=== PATIENT | female | born 1955 | race Caucasian/White ===

== ENCOUNTER 2017-11-21 05:59 | Day surgery (SDC) | payer OTHER, SELFPAY ==
[2017-11-21 06:51] VITALS: BP 155/70; PULSE 56; RESP 18; TEMP 36.3; O2SAT 100; BMI 26.6
--- NOTE | 2017-11-21 07:32 | PCM.OPRPT ---
Problem List (1) Personal history of colonic polyps Status: Acute Report of Operation Date of Procedure: 11/21/17 Pre-Operative Diagnosis: Z86.010 personal history of colonic polyps Post-Operative Diagnosis: Same Surgery/Procedure Performed:: 50621 colonoscopy Anesthesiologist: Piero Soliman Description of Procedure: Patient was brought into the endoscopy suite. Placed in the left lateral decubitus position. Was given graded anesthesia. The scope was inserted into the rectum and directed through the sigmoid colon, descending colon, transverse colon, ascending colon, to the cecum. Operative findings: 1. Anastomosis: Normal in appearance 2. Transverse colon: Normal appearance no mass lesions. 3. Descending colon: Normal appearance no mass lesions scattered diverticular disease. 4. Sigmoid colon: Normal appearance no mass lesions scattered diverticular disease. 5. Rectum: Normal appearance no mass lesions scope was withdrawn digital rectal exam was performed showing no masses within the anus. Patient tolerated the procedure well. Given the patient's family history she will need to have another colonoscopy in 5 years
[2017-11-21 08:00] VITALS: BP 138/70; BP 155/70; PULSE 59; RESP 17; TEMP 36.2; O2SAT 100
[2017-11-21 08:05] VITALS: BP 125/70; BP 155/70; PULSE 59; RESP 16; O2SAT 100
[2017-11-21 08:10] VITALS: BP 149/71; BP 155/70; PULSE 59; RESP 16; O2SAT 100
[2017-11-21 08:15] VITALS: BP 141/77; BP 155/70; PULSE 58; RESP 16; TEMP 36.5; O2SAT 99
[2017-11-21 08:29] VITALS: BP 155/70
== END 2017-11-21 08:40 | disposition home or self-care (01) ==
LOC: EN 05:59 → AC 06:01
PROVIDERS: Family Provider Internal Medicine; PCP Internal Medicine; Visit Provider Surgery
PROC: 0DJD8ZZ Inspection of Lower Intestinal Tract, Via Natural or Artificial Opening Endoscopic (ICD-10-PCS; CPT 45378; principal; 2017-11-21 07:25)
DX: Z86.010 Personal history of colon polyps (principal); I10 Essential (primary) hypertension; K58.9 Irritable bowel syndrome, unspecified; Z78.0 Asymptomatic menopausal state; M19.90 Unspecified osteoarthritis, unspecified site; M81.0 Age-related osteoporosis without current pathological fracture; Z90.49 Acquired absence of other specified parts of digestive tract; Z79.899 Other long term (current) drug therapy
CPT/HCPCS: 45378; J7120

== ENCOUNTER 2017-12-14 08:30 | Outpatient (RCR) | payer OTHER, SELFPAY ==
--- NOTE | 2017-10-13 12:21 | HP.PTEVAL_ITS ---
Patient's Visit Information LELAND HER is a 62 year old F referred to Physical Therapy by Nnamdi IRVING with a diagnosis of SCIATIC RADICULITIS. Date of Evaluation: 10/13/17 Physical Therapist: Kathy Gutierrez - Visit Plan Frequency: 2-3x /Week Duration: 4-6 Weeks Plan: POSTURE CORRECTION/STRENGTHENING, INSTRUCTION IN APPROPRIATE BODY MECHANICS AND ACTIVITY MODIFICATIONS. DLS STARTING WITH A NEUTRAL SPINE PROGRESSING ROM TOLERATED. TAMAR LE ROM, STRETCHING AND STRENGTHENING. HEP INSTRUCTION. 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 HELPS WITH DISHES, MOPPING AND SOME LIFING. Disability: NO. Present symptoms: RIGHT LOW BACK, RIGHT THIGH, RIGHT LEG, BOTTOM OF RIGHT FOOT. NO NUMBNESS OR TINGLING. Present since: ABOUT 3 MONTHS AGO. Pain Scale: WORST 8/10, LEAST 3/10. Currently: 3/10. Commenced as a result of: NO APPARENT REASON. Symptoms at onset: RIGHT LOW BACK. Worse: PROLONGED SITTING, WALKING, STANDING, HEAVY LIFTING, WORK. Better: A DOCTOR IN [place] USING A DEVICE, RESTING. Disturbed sleep: YES. Previous history/Previous treatment: NO LUMBAR SURGERY. CHIROPRACTIC TREATMENTS OFF AND ON FOR 4 TO 5 YEARS FOR BEING ACHY, RIGHT SHOULDER PAIN AND PATIENT DOESN'T REMEMBER HAVING LOW BACK PAIN OR RIGHT LEG SX' S BEFORE 3 MONTHS AGO. NO LORA'S. NO LOW BACK PT. Coughing/sneezing/straining: NEGATIVE. Gait: NORMAL LONG IT ISN'T TOO MUCH WALKING. RIGHT LOW BACK CAUSES LIMP WITH TOO MUCH WALKING. NO AD'S. Difficulty initiating urinatin: NO. Accidents: NO. Unexplained weight loss: NO. Imaging: LUMBAR X-RAY RECENTLY SHOWING SCIATIC N. RELATED. STATES [place] TOLD HER RIGHT HIP LOOKS GOOD. PMH: HISTORY OR RIGHT SHOULDER. OCT 25 2016 COLON RESECTION - DUE TO BENIGN PULUP. RIGHT FOOT SX WITH DR. ALVARADO WITHIN LAST 5 YEARS. HTN. OSTEOPENIA. - Objective Sitting Posture: POOR. Standing Posture: POOR. Lordosis: REDUCED. Lateral shift: NO. Relevant shift: N/A. Active Correction of posture: BETTER. Other Observations: INDEP SIT TO STAND WITHOUT UE ASSIST. Motor deficit: TAMAR LE 4/ 5 WITH MMT EXCEPT HIPS GRADED 4-/5. Sensory deficit: TAMAR LE LIGHT TOUCH SENSATION INTACT AND SYMMETRICAL. ROM deficit: TIGHT TAMAR HS'S AND GASTROC SOLEUS COMPLEX'S. Reflexes: 2/2 TAMAR LE'S. Dural Signs: POSITIVE TAMAR LE DURAL SIGNS. Lumbar mvmt loss: flex - MIN TO MOD -. ext - MOD TO LOLLY -. R SG - MOD -. L SG - MOD -. Core strength: POOR. Palpation: TENDERNESS WITH PALPATION OF THE RIGHT LUMBOSACRAL MUSCULATURE BUT NO TENDERNESS WITH PALPATION OF LOWER THORACIC OR LUMBAR SPINOUS PROCESSES. THORACIC AND LUMBAR PARASPINALS ARE VERY TIGHT. - Goals Goal 1:: DECREASE C/O LBP Goal Time Frame: 4-6 Weeks Goal 2:: IMPROVE LIFTIING, STANDING, WALKING, ADL AND WORK FUNCTION Goal Time Frame: 4-6 Weeks Goal 3:: INSTRUCT IN PROPHYLAXIS Goal Time Frame: 4-6 Weeks - Rehabilitation Potential Rehabilitation Potential: Fair - Anticipated Interventions Patient/Client Instruction: Educate patient on: Condition, Plan of Care, Risk Factors, Benefits of Fitness Program For the Purpose of:: To improve self management Therapeutic Exercise to Include: Strength training, Body mechanics, Postural training, Flexibilty training, Dynamic Lumbar Stabilization For the Purpose of:: To improve ability of physical actions for home/community/ work/leisure TENS: Yes IF ES: Yes Cryotherapy (ice pack, ice massage): Yes Thermo therapy (hot pack): Yes Ultrasound (thermal/non thermal): Yes For the Purpose of:: To decrease pain, To decrease swelling/inflammation, To increase ROM Thank you for the opportunity to evaluate your patient. For Medicare and Medicare HMO plans, please review the plan of care and approve it. It will need to be FAXED BACK to us at [phone] for Medicare purposes. Please let me know if there are questions or concerns regarding this plan of care. Physician Signature: Date:
--- NOTE | 2017-11-09 12:03 | HP.PTREVAL_ITS ---
DR.DDAVIS Michael It has been my pleasure to treat LELAND HER over the last 9 visits for SCIATIC RADICULITIS. Please see the progress note below for an update on the physical therapy plan of care! Subjective: PATIENT REPORTS HER STOMACH DIDN'T FEEL GOOD TUESDAY SO SHE CANCELLED. REPORTS SHE HAS HAD SOME LBP TODAY. PATIENT REPORTS THAT OVER ALL HER STRENGTH, PAIIN, AND WORK FUNCTION HAS IMPROVED. ALSO REPORTS HER BALANCE IS SOME BETTER BUT STILL A STRUGGLE IF SHE IS REALLY HURRING. SHE REPORTS THAT ALTHOUGH SHE FEELS LIKE THERAPY IS HELPING SHE IS STILL GETTING UP TO 3/10 PAIN AT TIMES IN HER RIGHT LOW BACK AND SHE IS IN PAIN ABOUT 50% OF THE DAY. SHE TRIES TO AVOID ACTIVITIES THAT CAUSE THE PAIN BUT SOMETIMES SHE CAN'T. 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 DECREASED PAIN WITH HEAT/ELECTRRICAL TREATMENTS. Objective/Function: PATIENT IS SHOWING AND REPORTING IMPROVEMENT IN HER STRENGTH AND FLEXABILITY. UPON EXAM, LUMBAR MVMT LOSS: FLEX - MOD, EXT - MOD, TAMAR SG - MIN TO MOD. NO INCREASED PAIN WITH LUMBAR ROM TESTING TODAY EXCEPT RETURN FROM FLEX. TAMAR LE DURAL SIGNS ARE NEGATIVE NOW BUT SHE STILL HAS TIGHT HAMSTRINGS AND GASTROC SOLEUS COMPLEX'S. TAMAR LE STRENGTH IS 5/5 WITH MMT EXCEPT HIPS 4/5 AND SHE STILL HAS POOR CORE STRENGTH BUT A LITTLE IMPROVEMENT. SHE IS INDEP WITH A HEP BUT STILL NEEDS MORE EDUCATION TO SEE IF SHE CAN SAFELY TRANSITION TO [facility] G[facility]SH[facility]. SHE STILL HAS LUMBAR TENDERNESS A PARASPINAL INCREASED MUSCLE TONE AND THIS PT BELIEVES SHE WOULD BENEFIT FROM CONTINUED PT DECREASING TO 2X'S A WEEK X 3 WEEKS. Plan Plan: CONT PT PER POC DECREASING TO 2X'S A WEEK FOR MODALITIES NEEDED AND FOCUS ON TRANSITION TO INDEP GYM MEMBERSHIP. Goals Goal 1:: DECREASE C/O LBP Goal Time Frame: 4-6 Weeks Goal Progress: Progressing Goal 2:: IMPROVE LIFTIING, STANDING, WALKING, ADL AND WORK FUNCTION Goal Time Frame: 4-6 Weeks Goal Progress: Progressing Goal 3:: INSTRUCT IN PROPHYLAXIS Goal Time Frame: 4-6 Weeks Goal Progress: Progressing Anticipated Interventions Patient/Client Instruction: Educate patient on: Condition, Plan of Care, Risk Factors, Benefits of Fitness Program For the Purpose of:: To improve self management Therapeutic Exercise to Include: Strength training, Body mechanics, Postural training, Flexibilty training, Dynamic Lumbar Stabilization For the Purpose of:: To improve ability of physical actions for home/community/ work/leisure TENS: Yes IF ES: Yes Cryotherapy (ice pack, ice massage): Yes Thermo therapy (hot pack): Yes Ultrasound (thermal/non thermal): Yes For the Purpose of:: To decrease pain, To decrease swelling/inflammation, To increase ROM Please do not hesitate to contact me at [phone] by phone or Fax: if you have questions or concerns regarding this new plan of care! Sincerely, Kathy Gutierrez
--- NOTE | 2017-12-14 12:11 | HP.PTDCSUM ---
HP - PT D/C Summary It has been my pleasure to treat LELAND HER under orders from DR.DDAVIS Michael for the diagnosis of SCIATIC RADICULITIS for a total of 14 visit(s). Discharge Date: Please see the following information for a summary of their discharge status. - Subjective Subjective: PATIENT REPORTS NOT BEING ABLE TO COME FOR AWHILE BECAUSE OF GETTING THE FLU. STATES HER BACK IS DOING PRETTY GOOD AND NOT HAVING ANY PAIN RIGHT NOW. STATES SHE IS COMFORTABLE WITH CONTINUING ON HER HOME WITH THE WRITTEN INSTRUCTIONS WE HAVE GIVEN HER. PATIENT REPORTS LBP UP TO 10/19 NOW AND STATES SHE IS USUALLY PAINFREE ABOUT 80% OR MORE OF HER DAY. - Pain LOW BACK Pain Intensity (Out of 10): 0 - Overall Improvement % Improvement: 90 - Objective Objective/Function: ALL GOALS MET. PATIENT DEOMONSTRATES AND COMMUNICATES A GOOD UNDERSTANDING OF EX INSTRUCTIONS LOG SHE USES THE DETAILED WRITTEN EX LOG GIVEN ALTHOUGH SHE IS SLOW AT PROCESSING HOW TO PROCEED AT TIMES. I REALLY THINK THIS WILL GET BETTER THE MORE SHE COMES ON HER OWN. UPON EXAM TODAY LUMBAR MVMT LOSS: FLEX - MIN, EXT - MIN TO MOD, TAMAR SG - MIN. NO C/O PAIN WITH LUMBAR ROM TESTING TODAY ALL PLANES. TAMAR LE DURAL SIGNS ARE NEGATIVE BUT SHE STILL HAS TIGHT HAMSTRINGS AND GASTROC SOLEUS COMPLEX'S. TAMAR LE STRENGTH IS 5/5 WITH MMT EXCEPT HIPS 4/5 AND SHE STILL HAS POOR CORE STRENGTH . - Goals Goal 1:: DECREASE C/O LBP Goal Progress: Goal Met Goal 2:: IMPROVE LIFTIING, STANDING, WALKING, ADL AND WORK FUNCTION Goal Progress: Goal Met Goal 3:: INSTRUCT IN PROPHYLAXIS Goal Progress: Goal Met - Plan Plan: D/C. PATIENT AGREEABLE. - D/C Information If there are questions or concerns regarding this patient's physical therapy, please feel free to call me at [phone]. Thank you for the referral of this patient. Sincerely, Kathy Gutierrez
== END 2017-12-14 17:54 | disposition home or self-care (01) ==
LOC: PT 08:30
PROVIDERS: Family Provider Internal Medicine; PCP Internal Medicine; Visit Provider Family Medicine
DX: M51.17 Intervertebral disc disorders with radiculopathy, lumbosacral region (principal)
CPT/HCPCS: 97014; 97035; 97110; 97162; 97530; G0283

== ENCOUNTER → 2019-03-12 | Outpatient (CLI) | payer OTHER, SELFPAY ==
--- NOTE | 2019-03-12 10:23 | STEWCON_ITS ---
Reason For Study: CHEST PAIN Stress Results Protocol: Bernardo Protocol WITH DEFINITY Maximum Predicted HR: 154 bpm Target HR: 131 bpm % Maximum Predicted HR: 86 % DurationHeart Rate Stage (mm:ss) (bpm) BP Comment BASELINE 75 132/821 CC DEFINITY STAGE 1 3:00 105 170/70 STAGE 2 3:00 113 160/88 STAGE 3 2:02 133 / 2CC DEFINITY RECOVERY 76 152/84 Stress Duration: 8:02 mm:ss Maximum Stress HR: 133 bpm Baseline Echocardiogram Findings Stress Echo Wall motion Data Resting WM Intermediate WM Stress WM Resting Wall Motion Wall Motion Stress No regional wall motion No regional wall motion abnormalities noted. abnormalities noted. Ejection Fraction 55 %. Ejection Fraction 70 %. Interpretation Summary Exercise stress echocardiogram. 64-year-old lady with a history of chest pain. Stress protocol: Resting EKG demonstrates normal sinus rhythm with a rate of 62 bpm normal intervals are noted resting blood pressures 132/82 mmHg. The patient exercised according to regular Bernardo protocol for total duration of 8 minutes completing 2 minutes into stage III of the Bernardo protocol. The maximum heart rate attained was 137 bpm which was 88% of maximum predicted heart rate the maximum workload was 10.1 metabolic equivalents. The patient maintained sinus rhythm throughout the recording. At rest there were no ST or T wave changes noted suggest ischemia and at peak exercise nonspecific ST-T wave changes were noted with normally the criteria for ischemia. No clinical angina was noted the test was terminated due to shortness of breath and fatigue. Occasional premature ventricular complexes were noted. The resting blood pressure was 132/82 with a peak blood pressure 182/80 mmHg. Stress echocardiographic images. Resting echocardiogram demonstrated an ejection fraction of approximately 55 to 60% with Definity enhancement. The peak exercise echocardiographic images demonstrated an ejection fraction of 75% with no wall motion abnormalities present. Conclusion: Normal exercise stress EKG and stress echocardiogram with no evidence of ischemia at a high workload. Ordering Physician: MARION Carl Referring Physician: MARION Carl Performed By: Katrina Dubon, MONA, RVT
== END | disposition home or self-care (01) ==
PROVIDERS: Family Provider Internal Medicine; PCP Internal Medicine; Referring Provider Nurse Practitioner Primary Care; Visit Provider Nurse Practitioner Primary Care
DX: R07.89 Other chest pain (principal); R00.2 Palpitations
CPT/HCPCS: 93017; 93350; Q9957; A4216; C8928

== ENCOUNTER 2020-09-26 06:00 | Day surgery (SDC) | payer OTHER, SELFPAY ==
[2020-09-26] VITALS (7 sets, daily range): BP systolic 150–175; BP diastolic 70–87; PULSE 60–89; RESP 16; TEMP 36.2–36.5; O2SAT 95–100; BMI 28.1
[2020-09-26] MEDS: Lactated Ringers 1,000 ML 100 ML IV ×2 (06:56→08:59)
[2020-09-26] MEDS: Cefazolin 2 GM in 0.9% Normal Saline 100 ML IV (07:26)
--- NOTE | 2020-09-26 07:30 | RAD_ITS ---
STUDY: X-RAY - LEFT FOOT CLINICAL: Female, 65 years old. 1ST METATARSAL PHALANGEAL JOINT CHEILECTOMY/ARTHROPLASTY. TECHNIQUE: 5 fluoroscopic guided view(s) of the foot. COMPARISON: None. FINDINGS: First metatarsal phalangeal joint arthroplasty performed utilizing fluoroscopic guidance and 10 seconds of fluoroscopic time. Findings images were obtained during the study and 1 was submitted for documentation. For more complete information recommend correlation with surgical notes RAD/Foot 2 Views IMPRESSION: Fluoroscopic guided arthroplasty of the first metatarsal phalangeal joint as per clinical history Electronically Signed: Pop Vergara MD at 17:55 EST , Service support ,
--- NOTE | 2020-09-26 07:30 | BON_PTH ---
PATIENT: LELAND HER LOC: [facility] – [place] U#:[id number] AGE/SX: 65/F ROOM: RE09/26/[address]: Dr. Pop Weir DPM : 1955 BED: DIS: 09/26/2020 SPEC #: [id number] RECD: 09/26/20 09:17 STATUS: NATHAN REQ #: [id number] CHRISTIAN: 09/26/20 07:[address]: Pop Weir DEPT: SURGICAL PATHOLOGY RECD BY: Jazmin Marcus ENTERED: 09/26/20 10:43 SP TYPE: Bone OTHR DR: Dr. Africa Graf MD Tissues: Toe, NOS Procedures: Decalcification bone/plaque Surgery Specimen Level III HEADER OPERATION: First metatarsophalangeal joint cheilectomy / arthroplasty PRE-OP DIAGNOSIS: Left great toe hallux rigidus TISSUE SUBMITTED: Bone from first metatarsophalangeal left great toe MICROSCOPIC DIAGNOSIS Bone first metatarsophalangeal joint left great toe: Pieces of bone with reactive changes, clinically hallux rigidus. RIMA:lina 10/01/20 MICROSCOPIC DESCRIPTION Slides are reviewed. GROSS DESCRIPTION Received in fixative is one container labeled with the patient's name and designated bone from first metatarsophalangeal left great toe. The specimen consists of multiple fragments of bone that in aggregate measure 3 x 3 x 0.5 cm. The entire specimen is submitted in two cassettes after decalcification. / RIMA:lina 09/26/20 TC:5 CPT: 02201, 21231
[2020-09-26] MEDS: Bupivacaine Mpf 0.5% 30 ML VIAL (07:48)
--- NOTE | 2020-09-26 08:49 | RAD_ITS ---
STUDY: X-RAY - LEFT FOOT CLINICAL: Female, 65 years old. POST OP TECHNIQUE: 3 view(s) of the foot. COMPARISON: None. FINDINGS: Normal talus, calcaneus, and tarsal bones. Normal visualized subtalar, talonavicular, calcaneocuboid, tarsal and tarsometatarsal articulations. Normal metatarsi. Status post first metatarsophalangeal joint arthroplasty in anatomic alignment. There is adjacent soft tissue swelling. Normal tibial and fibular sesamoid bones. Normal interphalangeal joint of the great toe. Normal phalanges of the great toe. Normal second through fifth metatarsophalangeal joints. Normal interphalangeal joints and phalanges of the lesser toes. The soft tissue structures are unremarkable. RAD/Foot min 3 Views IMPRESSION: Status post first metatarsophalangeal arthroplasty in anatomic alignment with soft tissue swelling. No complications. Electronically Signed: Tarsha Elise MD at 23:48 EST , Service support ,
--- NOTE | 2020-09-26 08:50 | PCM.OPRPT ---
Report of Operation Date of Procedure: 09/26/20 Pre-Operative Diagnosis: Hallux rigidus, left foot. 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 Laila Vidales Type of Anesthesia:: General, Local Specimen's removed: Bone from left 1st metatarsal phalangeal joint sent to pathology Estimated Blood Loss (mL): <1mL Description of Procedure: Indications: This is a 65 year old female with painful left 1st metatarsal phalagneal joint (MTPJ) due to osteoarthritis w/ hallux ridigus. Patient has pain and significantly limited range of motion. Significant osteoarthritis was seen on xrays of the foot. This has been treated with conservative/nonsurgical management, but symptoms persists and she continues to have pain and symptoms. She elected to undergo surgery. We discussed the procedure options, and we are planning to proceed with 1st MTPJ cheilectomy arthroplasty. We reviewed the rationale of this as well as the possible benefits, risks, potential complications goals and expectations of each. This was discussed with her in great detail. Typical post op recovery was reviewed with her. She expressed understanding and agreement. The consent forms were reviewed with her in detail, and she freely signed them. No guarantees were given nor implied. All of her questions were answered. Patient was medically cleared. Operative Procedure: The patient was brought back into the operating room and was placed on the operating room table in the supine position. She was carefully secured to the operating room table with a safety belt around her waist. A time out was performed and the patient was properly identified and the surgical plan was confirmed. The patient received 2 grams of IV Ancef for antibiotic prophylaxis. A well padded pneumatic tourniquet was applied around the left ankle. The patient did receive general anesthesia per the anesthesiologist. The skin was cleansed with 70% Isopropyl alcohol, and 20mL of 0.5% Bupivacaine plain was given as a 1st ray block on the left foot. The left foot was scrubbed, prepped, draped in the usual aseptic fashion. A timeout was performed and the patient was properly identified and the surgical plan was confirmed. The left foot was elevated for 3 minutes and the left ankle pneumatic tourniquet was inflated to 250mmHg. Attention was directed to the left 1st MTPJ. There as noted to be significant limited range of motion present, with significant grinding and dorsal jamming consistent with significant hallux rigidus and osteoarthritis. There was crepitus on range of motion to the joint consistent with osteoarthritis hallux rigidus. A linear longitudinal skin incision was made overlying the dorsal medial 1st MTPJ, medial to the Extensor Hallucis Longus tendon using a 15 scalpel blade. Careful dissection was completed down through the subcutaneous tissue layer, down to the 1st MTPJ capsule, which was incised with a 15 scalpel blade. The 1st MTPJ capsule was partially reflected exposing the dorsal, lateral, and medial aspect of the 1st metatarsal head and base of the hallux proximal phalanx. There were osteophytes around the dorsal 1st metatarsal head as well as the dorsal aspect of the base of the hallux proximal phalanx. The was a dorsal and medial eminence present to the 1st metatarsal head. The cartilage on the dorsal one third to one half of the 1st metatarsal head was severely worn away and unhealthy. There was a large osteochondral lesion to the dorsal central 1st metatarsal head, there was noted to be diffuse global thinning and wearing away of cartilage present. There were significant adhesions of the sesamoid apparatus. The adhesions of the sesamoid apparatus were freed up using a McGlamry elevator. Using a powered sagittal saw the dorsal and medial eminences, as well as the dorsal one third to one half 1st metatarsal head was resected - the osteochondral defect was resected in this process. The dorsal aspect of the base of the hallux proximal phalanx was resected with the powered sagittal saw. This was sent to pathology for further evaluation. All osteophytes were resected from the 1st metatarsal head and from the base of the hallux proximal phalanx using a bone cutting rongeur - these were sent to pathology with the specimen. Proper resection was confirmed using intra operative fluoroscopy, without the use of a fire protection equipment technician. There was noted to be osteochondral defect to the base of the hallux proximal phalanx and to the plantar central 1st metatarsal head which was drilled with a 0.062 in [place] to help stimulate fibrocartilage. At this time the 1st MTPJ was put through range of motion and it was gliding normally and smoothly, with no impingement or crepitus present, there was 90 degrees of 1st metatarsal phalangeal joint dorsiflexion, confirmed with fluoroscopy. There was no popping or catching present with range of motion. The site was flushed out with copious amounts of normal saline solution. The joint capsule was reapproximated in neutral position using 3-0 Vicryl, the subcutaneous tissue layer was reapproximated using 3-0 Vicryl, the skin was reapproximated using 4-0 Monocryl. Cavilon was painted to the sutured skin edges and steristrips were applied across the sutured skin incision. All vital structure, including all vital neurovascular structures were properly identified and protected as necessary throughout the procedure. The pneumatic tourniquet was deflated (total tourniquet time was 53 minutes), there was immediate return of vascular flow to the foot and all toes. CFT < 2 seconds to all toes, and had normal temperature gradient present with no evidence of ischemia. Hemostasis was achieved. A dressing was applied which consisted of Betadine soaked adaptic, 4x4 gauze, Kerlix and sarbjit dressing to the left foot. The patient tolerated the above operative procedure well at the anesthesia well with no complications. The patient was transported to the recovery room with vital signs stable and in good condition. Post operative orders were placed. Post operative instructions were reviewed with patient today, as well as with her and son who were with her. No weightbearing left foot, keep left foot elevated for at least 50 minutes of every hour, keep dressing clean, dry and intact to foot. Prescription for Vicodin was prescribed: 1-2 tabs PO q 6 hours PRN pain for pain control She was dispensed a surgical shoe. Post operative xrays were obtained in the recovery room which confirmed 1st MTPJ cheilectomy arthroplasty. No post operative complications and otherwise no acute changes and stable xrays. Grafts/Implants Used: None - Complications None
--- NOTE | 2020-09-26 08:54 | DCINST_ITS ---
Discharge Diet: Light diet - advance as tolerated Discharge Activity: May Not Drive, May not drive while taking narcotic pain medications., Use Walker Weight Bearing Status: No weight bearing - No weightbearing left foot Keep extremity elevated above heart level: Left Leg - Keep left foot elevated with pillows for at least 50 minutes of every hour Call your doctor if your incision/area has: Continuous Slow Oozing, Sudden Increased Bleeding, Foul Smelling Discharge Call your doctor if you observe: Fever of 101 or Higher, Shortness of breath, Chest pain, Calf discomfort Cleanse incision/area with: Do not get Incision Wet, Keep Dressing Clean & Dry Allergies/Adverse Reactions: Allergies propoxyphene napsylate [From [employer] 100] Adverse Reaction (Verified 09/26/20 06:34) Nausea Medications to take at Discharge Atenolol [Tenormin (beta anoop)] 25 mg PO DAILY 02/05/15 Ergocalciferol [Vitamin D] 50,000 unit PO Q7D 02/05/15 Hydrochlorothiazide [Hctz] 25 mg PO DAILY 02/05/15 Hydrocodone/Acetaminophen [Vicodin 5-300 mg Tablet] 1 - 2 tab PO Q6H PRN PRN 3 Days #20 tab 09/26/20 The following prescriptions were given: Hydrocodone/Acetaminophen [Vicodin 5-300 mg Tablet] 1 - 2 tab PO Q6H PRN PRN 3 Days #20 tab PRN Reason: Pain Score 4-10 Prescription Printed Primary Care Physician: Africa Graf MD [Primary Care Provider] - Test Results: Test results from this visit will be discussed in further detail at your follow- up appointment, if applicable. Please Follow Up With: Pop Weir DPM - Please call [facility] if need to speak with Dr. Weir over weekend When: next week as scheduled, sooner if needed.
--- NOTE | 2020-09-26 09:51 | SUR.PHASEII ---
PT. AWAKE, SITTING UP IN BED, EATING SNACK. FAMILY AT BEDSIDE. PT. REPORTS MINIMAL PAIN AND DECLINES ANY PAIN MEDICATION AT THIS TIME. FAMILY WILL TAKE RX TO PHARMACY TO FILL.
== END 2020-09-26 10:54 | disposition home or self-care (01) ==
LOC: SDC 06:02 → AC 06:03
PROVIDERS: PCP Internal Medicine; Referring Provider Podiatrist; Visit Provider Podiatrist
PROC: (CPT 28289; principal; 2020-09-26 07:15)
DX: M20.22 Hallux rigidus, left foot (principal); M19.072 Primary osteoarthritis, left ankle and foot; I10 Essential (primary) hypertension; K21.9 Gastro-esophageal reflux disease without esophagitis; Z20.828 Contact with and (suspected) exposure to other viral communicable diseases; Z79.899 Other long term (current) drug therapy
CPT/HCPCS: 01480; 28289; 73620; 73630; 76000; 87426; 88304; 88305; 88311; C9803; J7120; J2405

== ENCOUNTER → 2020-09-30 12:40 | Outpatient (CLI) | payer OTHER, SELFPAY ==
[2020-09-26 06:36] VITALS: BMI 28.1
--- NOTE | 2020-09-30 12:44 | VDLE_ITS ---
Reason For Study: calf pain Procedure LEFT This is a venous duplex using B-mode, color GSV is normal. flow and spectral Doppler. CFV is compressible, spontaneous, phasic, Exam performed in department. competent, and demonstrates normal The exam was abbreviated due to the COVID 19 augmentation. protocol. FV is compressible, spontaneous, phasic, The exam was diagnostic. competent and demonstrates normal A preliminary report was called and/or faxed augmentation. to Dr. Weir. POP V is compressible, spontaneous, phasic, competent and demonstrates normal augmentation. T/P Trunk is compressible. PTV is compressible. LT PerV is compressible. Interpretation Summary Deep veins of the left lower extremity are patent and compressible segmentally. There is no evidence of left lower extremity deep vein thrombosis. Valvular competence appears intact within the proximal deep venous system on the left . The left great saphenous vein appears patent and compressible segmentally. Ordering Physician: Pop Weir Performed By: Beto Dougherty RVT
== END ==
PROVIDERS: PCP Internal Medicine; Referring Provider Podiatrist; Visit Provider Podiatrist
DX: M79.662 Pain in left lower leg (principal)
CPT/HCPCS: 93971

== ENCOUNTER 2020-12-29 11:30 | Outpatient (RCR) | payer MEDICARE, OTHER, SELFPAY ==
[2020-09-26 06:36] VITALS: BMI 28.1
--- NOTE | 2020-11-27 13:31 | HP.PTEVAL_ITS ---
Patient's Visit Information LELAND HER is a 65 year old F referred to Physical Therapy by Dr. Pop Weir DPM with a diagnosis of Left 1st MTPJ arthroplasty/cheilectomy 09/26/20. Date of Evaluation: 11/05/20 Physical Therapist: Adela Mejia DPT - Visit Plan Frequency: 2x /Week Duration: 4 Weeks Plan: Try some SLS with right next visit. Pt presents with decreased ROM and poor balance to improve with therpautic interventions - Subjective DOS: 09/[address] Weir. Pt reports feeling good since surgery- stilll ahve some discomfort . last week was able to wear tennis shoes, wears them all the time- allowed to go back to boot/slipper if needed. pain: discomfort (soreness) 2/10- just in 1st ray. worse: 7/10 more painful with extension or walking on it for a while-tingling. denies numbness. sleep: most part good, depends on position, havent needed pillow under foot for swelling. retired and just does normal chores at home- some difficulty- stooping is hard but was before. just went on disability- he can help at home. only 2 steps in the enitre house (1 from garage, 1 from dinigng room)- increas pain but takses time on step. current shoes unable to fully lace shoe d/t swelling. going to get new shoes from [employer] - Pain Left Big Toe Pain Intensity (Out of 10): 4 - Objective posture: FH, RS. gait: antalgic, decreased stand time on affected side. HR/TR: HR pain in 1st ray, denies pain with TR. SLS: 2 seconds. palpation: tender along 1st ray, denies around ankle/calf/ and plantar surface, senstive along insicison. observation: swelling on dosrum of foot near rays. ROM:ankle: DF - 5 PF 40 inver 30 ever 20 1st ray: ext 10 flex 20. Strength: ankle: DF PF inver ever. flexibilty: gastroc: moderate - Goals Goal 1:: Patient will perform I HEP and progression Goal Time Frame: 4-6 Weeks Goal 2:: Patient will demonstrate improved 1st ray ROM in extention WFL in order to perform I functional mobility. Goal Time Frame: 4-6 Weeks Goal 3:: Patient will demonstrate SLS for 30 seconds in order to perform balance through I ADLs. Goal Time Frame: 4-6 Weeks - Rehabilitation Potential Physical Therapy Diagnosis: Pt presented with decreased ROM, balance, strength, fucntional mobilty impacting I ADLs. Rehabilitation Potential: Good - Anticipated Interventions Patient/Client Instruction: Educate patient on: Plan of Care For the Purpose of:: To improve muscle performance and motor function Therapeutic Exercise to Include: Strength training, Balance training, Coordination, Agility training, Body mechanics, Postural training, Flexibilty training, Gait and locomotor training For the Purpose of:: To increase tolerance to activity/condition/position Cryotherapy (ice pack, ice massage): Yes Thermo therapy (hot pack): Yes Thank you for the opportunity to evaluate your patient. For Medicare and Medicare HMO plans, please review the plan of care and approve it. It will need to be FAXED BACK to us at [phone] for Medicare purposes. For Medicare only, by signing this I certify the plan of care. Please let me know if there are questions or concerns regarding this plan of care. Physician Signature: Date:
--- NOTE | 2020-12-03 14:06 | HP.PTREVAL_ITS ---
Dr. Pop Weir, DYLAN, It has been my pleasure to treat LELAND HER over the last 9 visits for Left 1st MTPJ arthroplasty/cheilectomy 09/26/20. Please see the progress note below for an update on the physical therapy plan of care! Subjective: Patient reports that she is getting better. She feels that she is more sore when the weather is cold and Dr. Weir told her this was normal. 2- 3/10 pain at its worst when its warm- 5-6/10 when its cold. Objective/Function: posture: FH, RS. gait: slightly antalgic. HR/TR: able with UE A SLS: 8 seconds. palpation: tender along 1st ray, denies around ankle/calf/ and plantar surface, senstive along insicison. observation: mild swelling on dosrum of foot near rays. ROM:ankle: DF 8 degrees PF 50 inver 30 ever 20 1st ray: ext 10 flex 30. Strength: ankle: 4/5 flexibilty: gastroc: moderate Plan Plan: 12/03: 2x a week for 4 weeks- focuse on strength and proprioception. Goals Goal 1:: Patient will perform I HEP and progression Goal Time Frame: 4-6 Weeks Goal Progress: Progressing Goal 2:: Patient will demonstrate improved 1st ray ROM in extention WFL in order to perform I functional mobility. Goal Time Frame: 4-6 Weeks Goal Progress: Progressing Goal 3:: Patient will demonstrate SLS for 30 seconds in order to perform balance through I ADLs. Goal Time Frame: 4-6 Weeks Goal Progress: Progressing Anticipated Interventions Patient/Client Instruction: Educate patient on: Plan of Care For the Purpose of:: To improve muscle performance and motor function Therapeutic Exercise to Include: Strength training, Balance training, Coordination, Agility training, Body mechanics, Postural training, Flexibilty training, Gait and locomotor training For the Purpose of:: To increase tolerance to activity/condition/position Cryotherapy (ice pack, ice massage): Yes Thermo therapy (hot pack): Yes Please do not hesitate to contact me at [phone] by phone or if you have questions or concerns regarding this new plan of care! Sincerely, Adela Mejia DPT
--- NOTE | 2020-12-29 15:15 | HP.PTDCSUM ---
It has been my pleasure to treat LELAND HER referred by Dr. Pop Weir DPM, with the diagnosis of Left 1st MTPJ arthroplasty/cheilectomy 09/26/20 for a total of 15 visit(s). Discharge Date: Please see the following information for a summary of their discharge status. Subjective: Pt reports she si doing really well with her foot. The big toe is a little discomfort. Pt reports squatting is the hardest. Pt is excited to do outsdie painting today and knows she needs to be mindful of her pain. Pt reports that she sees Dr. Weir in early January Left Big Toe Pain Intensity (Out of 10): 1 % Improvement: 95 Objective/Function: posture: FH, RS. gait: slightly antalgic. HR/TR: able with UE A and a little discomfort in big toe. SLS: 10 seconds with mild sway. palpation: not tender to touch. ROM:ankle: DF 10 degrees PF 30 inver 30 ever 20 1st ray: ext 15 flex 30. Strength: ankle: 4/5. flexibilty: gastroc: moderate Goal 1:: Patient will perform I HEP and progression Goal Progress: Goal Met Goal 2:: Patient will demonstrate improved 1st ray ROM in extention WFL in order to perform I functional mobility. Goal Progress: Goal Met Goal 3:: Patient will demonstrate SLS for 30 seconds in order to perform balance through I ADLs. Goal Progress: Progressing Plan: Pt to be d/c with I HEP, encouraged to contact with questions and concerns If there are questions or concerns regarding this patient's physical therapy, please feel free to call me at [phone]. Thank you for the referral of this patient. Sincerely, Adela Mejia DPT
== END 2020-12-29 19:00 | disposition home or self-care (01) ==
LOC: PT 11:30
PROVIDERS: PCP Internal Medicine; Referring Provider Podiatrist; Visit Provider Podiatrist
DX: Z98.890 Other specified postprocedural states (principal)
CPT/HCPCS: 97110; 97162; 97164; 97530

== ENCOUNTER 2021-11-24 07:56 | Outpatient (CLI) | payer MEDICARE, OTHER, SELFPAY ==
--- NOTE | 2021-11-24 07:58 | MRI_ITS ---
STUDY: MR Spine Lumbar W/O Contrast 11/24/2021 4:51 PM REASON FOR EXAM: Female, 66 years old. Back pain LBP, RIGHT flank and RIGHT leg pain TECHNIQUE: MR Spine Lumbar W/O Contrast Standardized fat and water weighted pulse sequences were obtained. COMPARISON: None FINDINGS: T12-L1: Normal endplates. Normal disc height, hydration and morphology. Normal bilateral facet joints. Normal central canal and bilateral lateral recesses. Normal bilateral intervertebral neural foramina. There is straightening of the normal lumbar lordosis. There is no substantial scoliosis. Normal conus medullaris that terminates at the L1. There are atherosclerotic vascular calcifications. L1-2: Normal endplates. Normal disc height and morphology. Normal central canal and intervertebral neuroforamina. L2-3: Normal endplates. Normal disc height, hydration and morphology. Normal bilateral facet joints. Normal central canal and bilateral lateral recesses. Normal bilateral intervertebral neural foramina. L3-4: Loss of intervertebral disc height. There is endplate spondylosis of the vertebral body. Normal central canal and intervertebral neuroforamina. There is bilateral facet arthropathy. Posterior disc bulge. There is bilateral ligamentum flavum thickening. L4-5: Loss of intervertebral disc height. There is endplate spondylosis of the vertebral body. Normal central canal and intervertebral neuroforamina. There is bilateral facet arthropathy. Posterior disc bulge. There is bilateral ligamentum flavum thickening. L5-S1: Loss of intervertebral disc height. There is endplate spondylosis of the vertebral body. There is bilateral facet arthropathy. Normal central canal and intervertebral neuroforamina. Posterior disc bulge. There is bilateral ligamentum flavum thickening. Normal visualized sacral ala. Normal visualized paraspinous soft tissue structures. MRI/Spine Lumbar (Routine) IMPRESSION: There is mild straightening of the normal lumbar lordosis. This can suggest back strain. L3-4 to L5-S1 degenerative changes, as described above. Electronically Signed: Didier Sotelo MD at 16:53 EST ,
== END 2021-11-24 23:59 | disposition home or self-care (01) ==
LOC: MRI 07:58
PROVIDERS: PCP Internal Medicine; Referring Provider Orthopaedic Surgery; Visit Provider Orthopaedic Surgery
DX: M51.26 Other intervertebral disc displacement, lumbar region (principal); R52 Pain, unspecified
CPT/HCPCS: 72148

== ENCOUNTER 2022-05-09 18:02 | Emergency (ER) | payer MEDICARE, OTHER, SELFPAY ==
[2022-05-09 18:04] VITALS: BP 223/80; PULSE 75; RESP 16; TEMP 36.6; O2SAT 97; BMI 26.4
--- NOTE | 2022-05-09 18:19 | EX.ED.DYSGE1 ---
HPI History of Present Illness Chief Complaint: Hypertension Informant: patient Onset/Context/Timing Onset: Yesterday Context: Gradual Onset Timing: Continuous Quality: Tightness, dull Location: Left arm Worsened by: Nothing Relieved by: Nothing Narrative Narrative: Patient presents with elevated blood pressures that were noticed tonight. Patient states she had some tightness in her left arm yesterday. Patient states that today she checked her blood pressure and it was 188/80. Patient states that she takes metoprolol and hydrochlorothiazide. Patient states she has not missed any doses. Patient denies any chest pain or back pain. Patient denies any nausea or vomiting. Patient denies any other symptoms. When the patient got here her blood pressure was 223/80. [facility] Medical History (Updated 05/09/22 @ 21:[address] Tez Marley DO) Back pain History of shingles HTN (hypertension) Osteoarthritis Sciatic nerve pain Thrombosed hemorrhoids Home Medications atenolol 25 mg tablet 50 mg PO DAILY 02/05/15 [History Last Taken 11/21/17 03:00] hydrochlorothiazide 25 mg tablet 25 mg PO DAILY 02/05/15 [History Last Taken Unknown] Allergy/AdvReac Type Severity Reaction Status Date / Time propoxyphene napsylate AdvReac Nausea Verified 05/09/22 18:07 [From Darvocet-N 100] Family History Mother Heart disease Hypertension Thyroid disorder Sister Hypertension Osteoporosis Surgical History (Updated 05/09/22 @ 18:54 by Keyonna Mejia) H/O excision of mass History of foot surgery S/P colonoscopy S/P laparoscopy S/P right hemicolectomy Social History Smoking Status: Never smoker ROS ROS ED Constitutional Constitutional ED: Denies chills or fever(s) Eyes Eyes: Denies blurry vision or change in vision ENT ENT ED: Denies rhinorrhea or sore throat Cardiovascular Cardiovascular: Denies chest pain or palpitations Respiratory/Chest Respiratory/Chest: Denies cough or dyspnea Gastrointestinal Gastrointestinal: Denies nausea or vomiting Genitourinary Genitourinary ED: Denies dysuria or hematuria Musculoskeletal Musculoskeletal: Denies back pain or neck pain Integumentary Denies abscess or rash Neurologic Neurologic: Denies headache(s) or weakness Allergic/Immunologic Allergic/Immunologic ED: Denies mouth swelling or urticaria EXAM Physical Exam Const Vital Signs: 05/09/22 18:04 05/09/22 18:30 05/09/22 18:31 Temperature 97.9 F Temperature Source Temporal Pulse Rate 75 78 Respiratory Rate 16 18 Respiratory Effort Normal Respiratory Pattern Normal Blood Pressure 223/80 H 226/79 H Blood Pressure Mean 127 128 Pulse Ox 97 97 Oxygen Delivery Method Room Air Room Air 05/09/22 20:28 05/09/22 21:15 05/09/22 21:46 Temperature Temperature Source Pulse Rate 76 81 80 Respiratory Rate 14 19 H 15 Respiratory Effort Respiratory Pattern Blood Pressure 196/81 H 173/79 H 163/79 H Blood Pressure Mean 119 110 107 Pulse Ox 98 Oxygen Delivery Method Room Air Room Air Positive well nourished and well developed General Appearance ED: well developed and NAD HEENT Reports moist mucous membranes Neck supple and no JVD Resp normal respiratory effort and clear to auscultation bilaterally Cardio regular rate, regular rhythm and no murmurs GI normal to inspection, nondistended, normoactive bowel sounds and non-tender Palpation: soft Extremity normal to inspection General Extremety ED: Negative for edema or tenderness General Extremity: Negative for edema Neuro oriented x3, CN's II-XII intact bilaterally and no sensory deficits noted Sensorium / Orientation: alert Motor Exam: strength 5/5 throughout Psych mental status grossly normal Skin no rashes or lesions noted MDM MDM MDM Narrative Medical decision making narrative: EKG was obtained. On my interpretation, it showed a normal sinus rhythm with a rate of 70. FL interval, QRS interval, and QTc intervals were all normal. [place] was normal. There are no acute ST or T wave changes. PA and lateral chest x-ray was obtained. There are 2 views. On my interpretation, lung mcneil are clear. There is normal cardiac silhouette. Bony thorax is normal. There is no acute process noted. Radiologist also interpreted the x-ray and agrees. CBC was within normal limits. Comprehensive metabolic profile showed a hypokalemia of 2.9 but was otherwise within normal limits. Troponin was normal. Patient was given a dose of labetalol here. Patient was given a dose of potassium here. Patient's blood pressure remained elevated. Patient was given a dose of clonidine. Patient's blood pressure improved to 163/79 after this. Patient was instructed to increase her atenolol to 100 mg daily. Patient was instructed to continue to monitor her blood pressures. Patient was instructed to follow-up with her primary care physician in 3 to 5 days for reevaluation. Patient understood and was agreeable with the plan. All questions were answered. Lab Data Attestation: I reviewed the patient's lab results. Labs: Laboratory Results - last 24 hr 05/09/22 05/09/22 19:00 19:00 WBC 6.9 RBC 4.01 L Hgb 13.0 Hct 38.8 MCV 96.8 MCH 32.4 H MCHC 33.5 RDW Std Deviation 42.7 RDW Coeff of [place] 12.0 Plt Count 245 MPV 9.6 Immature Gran % (Auto) 0.100 Neut % (Auto) 55.3 Lymph % (Auto) 26.4 [place] % (Auto) 14.2 H Eos % (Auto) 3.0 Baso % (Auto) 1.0 Absolute Neuts (auto) 3.8 Absolute Lymphs (auto) 1.82 Nucleated RBC % 0 Sodium 139 Potassium 2.9 L Chloride 103 Carbon Dioxide 31.0 Anion Gap 5 BUN 17 Creatinine 0.90 Estim Creat Clear Calc 44.52 Est GFR (MDRD) Af Amer 80 Est GFR (MDRD) Non-Af 66 BUN/Creatinine Ratio 18.9 Glucose 115 H Calcium 9.0 Total Bilirubin 0.40 AST 28 ALT 41 Alkaline Phosphatase 82 Troponin I High Sens 6 Total Protein 6.9 Albumin 3.9 Globulin 3.0 Albumin/Globulin Ratio 1.3 Radiography Chest X-Ray - ED: 2 View, Read by ED Physician, Read by Radiologist and No Acute Disease Diagnostic Testing: Clinical Impression(s) from Imaging Studies Chest X-Ray 05/09/22 18:30 IMPRESSION: No acute cardiopulmonary pathology Electronically Signed: Pop Vergara MD at 19:07 EDT , EKG Initial EKG: Attestation: I personally reviewed and interpreted this EKG as follows: Interpretation: Sinus Rhythm (70) and No Acute Injury Pattern Prior EKG tracings: not available for review Prior: No Prior Discharge Plan Triage Chief Complaint: Hypertension ED Provider: Tez Marley Dx/Rx/DC Orders Clinical Impression: Hypertension Instructions: ED High Blood Pressure Hypertension Prescriptions: No Action atenolol 25 MG tablet 50 mg PO DAILY hydrochlorothiazide 25 MG tablet 25 mg PO DAILY Primary Care Provider: Africa Graf Referrals: Africa Graf MD [Primary Care Provider] - 3-5 Days Activity Restrictions/Additional Instructions: Increase your atenolol to 100 mg daily. Keep a log of your blood pressures. Follow-up with your primary care physician and take your blood pressure measurements with you. Disposition Disposition: Home, Self Care
--- NOTE | 2022-05-09 18:27 | EKG12_ITS ---
Test Reason : HTN Blood Pressure : / mmHG Vent. Rate : 070 BPM Atrial Rate : 070 BPM P-R Int : 178 ms QRS Dur : 076 ms QT Int : 444 ms P-R-T Axes : 017 -07 009 degrees QTc Int : 479 ms Normal sinus rhythm Inferior infarct , age undetermined Abnormal ECG Confirmed by YAMILET RAJAN, ZAKI ([id number]), visual effects editor SHOBHA VILLARREAL ([id number]) on 05/11/2022 1:07:56 PM Referred By: EDI Confirmed By:ZAKI WOODARD MD
--- NOTE | 2022-05-09 18:28 | NURSING ---
NO OLD EKGS
--- NOTE | 2022-05-09 18:30 | RAD_ITS ---
STUDY: X-RAY CHEST REASON FOR EXAM: Female, 67 years old. Hypertension TECHNIQUE: PA and lateral COMPARISON: None. FINDINGS: The lungs are clear and expanded. There is no demonstrated pleural abnormality. Normal size heart. Normal mediastinum and sahra. Normal visualized pulmonary arteries. Normal visualized aortic arch and descending thoracic aorta. Dorsal spine and shoulders demonstrate mild degenerative change. Normal visualized ribs, and clavicles.. There is no demonstrated abnormality of the visualized soft tissue structures of the upper abdomen. RAD/Chest PA and Lateral IMPRESSION: No acute cardiopulmonary pathology Electronically Signed: Pop Vergara MD at 19:07 EDT ,
[2022-05-09 18:31] VITALS: BP 226/79; PULSE 78; RESP 18; O2SAT 97
[2022-05-09] MEDS: Potassium Chloride Oral Tablet 20 MEQ 40 MEQ PO (20:03)
[2022-05-09 20:06] LABS: Absolute Lymphocyte Count 1.82 X10^3/uL (0.83-4.51); Absolute Neutrophil Count 3.8 X10^3/uL (2.0-7.7); Basophil# 0.07 X10^3/uL; Eosinophil# 0.21 X10^3/uL; Hematocrit 38.8 % (37-47); Lymphocyte # 1.82 X10^3/ul (0.83-4.51); Lymphocyte % 26.4 % (19-41); Mean Corp Hgb Conc 33.5 g/dL (32-36); Mean Corpuscular Hgb 32.4 pg (27.0-32.0); Mean Corpuscular Volume 96.8 fL (81-99); Mean Platelet Vol. 9.6 fl (6.2-12.0); Monocyte# 0.98 X10^3/uL; Monocyte% 14.2 % (0-10); NRBC Flagged by Analyzer 0 % (0-5); Neutrophil # 3.81 X10^3/uL (2.7-7.7); Neutrophil % 55.3 % (47-70); Platelet Count 245 K/mm3 (150-450); RBC Distribution Width SD 42.7 fl (35.1-43.9); Red Blood Count 4.01 M/mm3 (4.2-5.4); White Blood Count 6.9 K/mm3 (4.4-11.0)
[2022-05-09] MEDS: Labetalol (Prefilled) 20 MG/4 ML IV (20:06)
[2022-05-09 20:18] LABS: ALB/GLOB Ratio 1.3 RATIO (0.9-2.4); AST(SGOT) 28 U/L (15-37); Alanine Aminotransfer ALT/SGPT 41 U/L (13-56); Albumin, Serum 3.9 g/dL (3.2-5.0); Alkaline Phosphatase 82 U/L (45-117); BUN 17 mg/dL (7-18); BUN/Creat Ratio 18.9 RATIO (10-20); EST Glomerular Filtration Rate 66 mL/min (>60); Est Glom Filt Rate - Afr Amer 80 mL/min (>60); Estimated Creatinine Clearance 44.52 ml/min; Glucose 115 mg/dL (74-106); Protein, Total 6.9 g/dL (6.4-8.2); Troponin-I HS 6 pg/mL (3.0-54.0)
[2022-05-09 20:19] LABS: Anion Gap 5 (5-15); Chloride 103 mmol/L (98-107); Potassium 2.9 mmol/L (3.5-5.1); Sodium Level 139 mmol/L (136-145)
[2022-05-09 20:28] VITALS: BP 196/81; PULSE 76; RESP 14
[2022-05-09 21:15] VITALS: BP 173/79; PULSE 81; RESP 19
[2022-05-09] MEDS: cloNIDine HCl 0.2 MG Tablet PO (21:15)
[2022-05-09 21:46] VITALS: BP 163/79; PULSE 80; RESP 15; O2SAT 98
[2022-05-09 21:52] VITALS: BP 163/79; PULSE 84; RESP 21; O2SAT 98
== END 2022-05-09 21:57 | disposition home or self-care (01) ==
PROVIDERS: Emergency Provider Emergency Medicine; PCP Internal Medicine; Visit Provider Emergency Medicine
DX: I10 Essential (primary) hypertension (principal); M19.90 Unspecified osteoarthritis, unspecified site; Z79.899 Other long term (current) drug therapy
CPT/HCPCS: 71046; 80053; 84484; 85025; 93005; 96374; 99285; A4216

== ENCOUNTER → 2022-07-02 | Outpatient (CLI) | payer MEDICARE, OTHER, SELFPAY | END | disposition home or self-care (01) | LOC: SL 20:03 | PROVIDERS: PCP Internal Medicine; Referring Provider Internal Medicine; Visit Provider Internal Medicine | DX: G47.30 Sleep apnea, unspecified (principal) | CPT/HCPCS: 95810 ==

== ENCOUNTER → 2022-08-13 | Outpatient (CLI) | payer MEDICARE, OTHER, SELFPAY | END | disposition home or self-care (01) | LOC: SL 21:15 | PROVIDERS: PCP Internal Medicine; Visit Provider Nurse Practitioner | DX: G47.33 Obstructive sleep apnea (adult) (pediatric) (principal) | CPT/HCPCS: 95811 ==